=== PATIENT | female | born 1980 ===

== ENCOUNTER 2019-02-03 13:34 | Outpatient (CLI) | payer SELFPAY | END 2019-02-03 13:35 | disposition home or self-care (01) | LOC: C.LAB 13:34 | DX: Z11.3 Encounter for screening for infections with a predominantly sexual mode of transmission (principal); Z13.9 Encounter for screening, unspecified; Z36.0 Encounter for antenatal screening for chromosomal anomalies; Z3A.00 Weeks of gestation of pregnancy not specified ==

== ENCOUNTER → 2019-02-17 | Outpatient (CLI) | payer SELFPAY | LOC: C.LAB 13:18 | DX: Z3A.16 16 weeks gestation of pregnancy (principal) ==